=== PATIENT | male | born 1955 | race Caucasian/White ===

== ENCOUNTER 2017-08-15 16:24 | Emergency (ER) | payer OTHER ==
[~2017-08-15] VITALS: Ht 172.7 cm; Wt 82.0 kg
[2017-08-15 16:30] VITALS: BP 100/81
== END 2017-08-16 09:56 | disposition left against medical advice (07) ==
LOC: ER 16:24
DX: Z04.3 Encounter for examination and observation following other accident (principal); M79.645 Pain in left finger(s); Z53.21 Procedure and treatment not carried out due to patient leaving prior to being seen by health care provider